=== PATIENT | male | born 1995 | race Two or more races ===

== ENCOUNTER 2018-02-17 23:07 | Emergency (ER) | payer SELFPAY ==
[~2018-02-17] VITALS: Ht 180.3 cm; Wt 72.6 kg
[2018-02-17 23:16] VITALS: BP 111/72
--- NOTE | 2018-02-17 23:20 | Emergency Room Report ---
History of Present Illness General Chief Complaint: Medical Clearance Source: Patient Present Illness HPI Is a 23-year-old male who is brought in by police for medical clearance. He was at [employer] and was intoxicated. He tried to head butt a harbor [employer] police and was taken down by security. His face hit the pavement. He sustained abrasion to his face. No other injury. He denies any other complaint other than his wrists hurt from the handcuffs being too tight. He has no headache or head pain. He doesn't want any CT scan. He's been drinking heavily tonight. Allergies: Coded Allergies: No Known Allergies (Unverified , 02/17/18) Patient History Past Medical History: see triage record, old chart reviewed Past Surgical History: none Pertinent Family History: none Social History: Reports: alcohol use Immunizations: other Reviewed Nursing Documentation: PMH: Agreed; PSxH: Agreed Nursing Documentation-PM Past Medical History: No Stated History Review of Systems Eye: Denies: eye pain, blurred vision ENT: Denies: ear pain, nose congestion, throat swelling Respiratory: Denies: cough, shortness of breath Cardiovascular: Denies: chest pain, palpitations Gastrointestinal: Denies: abdominal pain, diarrhea, nausea, vomiting Musculoskeletal: Denies: back pain, joint pain Skin: Denies: rash Neurological: Denies: headache, numbness Endocrine: Denies: increased thirst, increased urine Hematologic/Lymphatic: Denies: easy bruising All Other Systems: negative except mentioned in HPI Physical Exam Vital Signs Date Time Temp Pulse Resp B/P (MAP) Pulse Ox O2 Delivery O2 Flow Rate FiO2 02/17/18 23:13 98.0 101 16 111/72 96 Room Air 98.1 vitals normal Sp02 EP Interpretation: reviewed, normal General Appearance: well appearing, no apparent distress, alert, other - Intoxicated Head: normocephalic, other - Abrasion to right cheek Eyes: bilateral eye PERRL, bilateral eye EOMI ENT: hearing grossly normal, normal pharynx Neck: full range of motion, supple, no meningismus Respiratory: chest non-tender, lungs clear, normal breath sounds Cardiovascular #1: regular rate, rhythm, no murmur Gastrointestinal: normal bowel sounds, non tender, no mass, no organomegaly, no bruit, non-distended Musculoskeletal: back normal, gait/station normal, normal range of motion Psychiatric: mood/affect normal Skin: warm/dry Medical Decision Making Diagnostic Impression: Primary Impression: Abrasion of face Qualified Codes: S00.81XA - Abrasion of other part of head, initial encounter Additional Impressions: Alcohol intoxication Qualified Codes: F10.920 - Alcohol use, unspecified with intoxication, uncomplicated Examination for medicolegal reason ER Course patient with soft tissue injury secondary to abrasion from the ground. Unlikely to have internal injury or bleeding. Patient is otherwise neurologically intact. He refused CT scan. We'll discharge to police. His wrist pain is better after having handcuffs loosened by police. Last Vital Signs Date Time Temp Pulse Resp B/P (MAP) Pulse Ox O2 Delivery O2 Flow Rate FiO2 02/17/18 23:13 98.0 101 16 111/72 96 Room Air 98.1 Status: improved Disposition: D/C TO LAW ENFORCEMENT IN [facility] Condition: Stable Additional Instructions: Abstain from drinking to excess. Follow-up with your doctor in 7 days. Return if worse. JOE CHACKO M.D. Feb 17, 2018 23:20
== END 2018-02-17 23:26 ==
LOC: EMR 23:15
DX: S00.81XA Abrasion of other part of head, initial encounter (principal); Y35.893A Legal intervention involving other specified means, suspect injured, initial encounter; Y92.89 Other specified places as the place of occurrence of the external cause; F10.129 Alcohol abuse with intoxication, unspecified
CPT/HCPCS: 99282